=== PATIENT | male | born 1995 | race Two or more races ===

== ENCOUNTER 2016-05-18 18:12 | Emergency (ER) | payer OTHER ==
--- NOTE | 2016-05-18 20:04 | CT ---
Name: CHELLE SAUCEDO Exam: CT head without contrast Comparison: None Clinical history: Frontal headache Technique: Helical CT was performed through the head. Angled axial reconstructions were obtained. Sagittal and coronal reconstructions were obtained as well. No contrast was given. An automated dose reduction technique was used to minimize patient radiation dose. Findings: There is no shift of the midline structures. Ventricles are of normal size and configuration. There is no mass, mass effect or hemorrhage. Cisterns are uneffaced. Posterior fossa is unremarkable. Visualized paranasal sinuses and mastoid air cells are normal. There is no fracture. Impression: Negative unenhanced CT of head Note: The above report was uploaded to [facility]'s electronic medical records system at 2000 hours.
== END 2016-05-18 20:25 | disposition home or self-care (01) ==
LOC: ED 18:12
DX: R51 Headache (principal); I10 Essential (primary) hypertension

== ENCOUNTER 2016-05-23 20:13 | Emergency (ER) | payer OTHER ==
[2016-05-23 21:29] LABS: URINE APPEARANCE CLEAR; URINE BILIRUBIN NEGATIVE (NEGATIVE); URINE BLOOD NEGATIVE (NEGATIVE); URINE COLOR YELLOW; URINE GLUCOSE (UA) NEGATIVE (NEGATIVE); URINE LEUKOCYTE ESTERASE NEGATIVE (NEGATIVE); URINE NITRITE NEGATIVE (NEGATIVE); URINE PROTEIN NEGATIVE (NEGATIVE); URINE UROBILINOGEN NORMAL (0-1 mg/dl)
--- NOTE | 2016-05-24 07:54 | US ---
SCROTAL ULTRASOUND HISTORY: Right testicular pain, mobility of the right testis. Scrotal sonography was performed. COMPARISON: None. MEASUREMENTS RIGHT TESTIS: 4.4 x 2.7 x 2.2 cm, normal intrascrotal position LEFT TESTIS: 4.0 x 2.5 x 2.0 cm, normal intrascrotal position RIGHT EPIDIDYMAL HEAD: 14 x 10 x 7 mm LEFT EPIDIDYMAL HEAD: 11 x 10 x 7 mm EPIDIDYMAL LESIONS: 4 mm right epididymal head cyst versus spermatocele. FOCAL TESTICULAR LESIONS: None. TESTICULAR BLOOD FLOW: Present and symmetric. FLUID COLLECTIONS: No dominant fluid collection. IMPRESSION: Minimal 4 mm right epididymal head cyst versus spermatocele, doubtful clinical significance. Otherwise unremarkable sonographic appearance of the scrotal elements. Specifically, testicular position and testicular blood flow are symmetric and unremarkable. Preliminary report relayed to the Emergency Medicine medical service by Dr. Hdez on 2153 hours, 05/23/2016.
== END 2016-05-23 22:22 | disposition home or self-care (01) ==
LOC: ED 20:13
DX: N45.1 Epididymitis (principal)